=== PATIENT | female | born 1955 | race Caucasian/White ===

== ENCOUNTER 2023-09-19 16:47 | Emergency (ER) | payer MEDICARE, BC ==
[2023-09-19 17:19] LABS: APPEARANCE,URINE CLOUDY (CLEAR); BILIRUBIN,URINE NEGATIVE (NEGATIVE); COLOR,URINE YELLOW (YELLOW); GLUCOSE,URINE NEGATIVE (NEGATIVE); KETONES,URINE 15 mg/dL (NEGATIVE); LEUKOCYTE ESTERASE,URINE SMALL (NEGATIVE); NITRITE,URINE POSITIVE (NEGATIVE); OCCULT BLOOD,URINE MODERATE (NEGATIVE); PH,URINE 5.5 (4.5-8.0); PROTEIN,URINE 30 mg/dL (NEGATIVE)
[2023-09-19 17:19] LABS: BASOPHILS ABSOLUTE AUTO 0.05 10^3/uL (0.00-0.50); BASOPHILS PERCENT AUTO 0.4 % (0-1); HEMATOCRIT 39.7 % (37.0-47.0); IMMATURE GRAN ABSOLUTE AUTO 0.03 10^3/uL (0.00-0.49); IMMATURE GRAN PERCENT AUTO 0.2 % (0.0-4.9); LYMPHOCYTES ABSOLUTE AUTO 1.16 10^3/uL (0.60-5.00); LYMPHOCYTES PERCENT AUTO 8.2 % (24-44); MEAN CORPUSCULAR HEMOGLOBIN 28.2 pg (27.0-32.0); MEAN CORPUSCULAR HGB CONC 32.7 g/dL (32.0-36.0); MEAN CORPUSCULAR VOLUME 86.1 fL (83.0-97.0); MONOCYTES ABSOLUTE AUTO 0.73 10^3/uL (0.00-1.50); MONOCYTES PERCENT AUTO 5.1 % (0-10); NEUTROPHILS ABSOLUTE AUTO 12.24 x10^3/uL (1.80-8.00); NEUTROPHILS PERCENT AUTO 86.1 % (41-71); PLATELET COUNT,PLT 267 10^3/uL (150-400); RED BLOOD CELL COUNT 4.61 x10^6/uL (4.00-5.50); WHITE BLOOD CELL COUNT,WBC 14.2 10^3/uL (4.0-11.0)
[2023-09-19 17:27] LABS: BACTERIA,URINE MANY /HPF (NOT SEEN); EPITHELIAL CELLS,URINE OCCASIONAL /HPF (NOT SEEN); WBC CLUMPS,URINE FEW /HPF (NOT SEEN); WBC,URINE 40-50 /HPF (0-5)
[2023-09-19 17:31] LABS: C-REACTIVE PROTEIN 6.39 mg/dL (<=0.50); CALCIUM 8.9 mg/dL (8.4-10.1); CREATININE 1.1 mg/dL (0.6-1.0); EST CRCL DRUG DOSING (CG) 38.18 mL/min; POTASSIUM,K 3.4 mEq/L (3.5-5.0)
[2023-09-19] MEDS: cefTRIAXone 1 GM, Lidocaine 1% 2.1 ML IM STA (17:41)
[2023-09-19 17:43] LABS: TSH ULTRASENSITIVE 0.56 uIU/mL (0.36-5.60)
== END 2023-09-19 17:58 | disposition home or self-care (01) ==
LOC: CC.ED 16:47
DX: N30.01 Acute cystitis with hematuria (principal); J44.9 Chronic obstructive pulmonary disease, unspecified; Z88.0 Allergy status to penicillin; Z79.899 Other long term (current) drug therapy; Z90.710 Acquired absence of both cervix and uterus
CPT/HCPCS: 36415; 80048; 81001; 84443; 85025; 86140; 87086; 87088; 87186; 87804; 96372; 99283; 99284; J0696; J3490; U0002